=== PATIENT | male | born 1970 | race Caucasian/White ===

== ENCOUNTER 2018-03-01 17:08 | Emergency (ER) | payer SELFPAY ==
[2018-03-01 17:26] VITALS: BP 117/73
--- NOTE | 2018-03-01 18:26 | RADIOLOGY REPORT (SQ) ---
EXAM DESCRIPTION: HAND RIGHT 3 VIEWS COMPLETED DATE/TIME: 03/01/2018 6:14 pm REASON FOR STUDY: right hand swollen and pain COMPARISON: None. NUMBER OF VIEWS: Three views right hand. LIMITATIONS: None. FINDINGS: Fractures through the bases of the 4th and 5th metacarpals, intra-articular. Slight ulnar displacement of the 5th metacarpal with intermetacarpal widening. OTHER: No other significant finding. IMPRESSION: Intra-articular fractures through the 4th and 5th metacarpal bases. Slight displacement of the 5th metacarpal. TECHNICAL DOCUMENTATION: JOB ID: [id number] Reading location - IP/workstation name: [email or web address]
[2018-03-01] MEDS ORDERED: HYDROCODONE/ACETAMINOPHEN 5-325 MG TABLET PO ONE (18:48)
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
== END 2018-03-01 19:20 | disposition home or self-care (01) ==
LOC: ER 17:08
PROC: 2W3CX1Z Immobilization of Right Lower Arm using Splint (ICD-10-PCS; principal; 2018-03-01)
DX: S62.394A Other fracture of fourth metacarpal bone, right hand, initial encounter for closed fracture (principal); S62.396A Other fracture of fifth metacarpal bone, right hand, initial encounter for closed fracture; Y04.2XXA Assault by strike against or bumped into by another person, initial encounter; Z71.6 Tobacco abuse counseling; F17.210 Nicotine dependence, cigarettes, uncomplicated
CPT/HCPCS: 99283; 99406

== ENCOUNTER 2018-03-07 11:07 | Day surgery (SDC) | payer SELFPAY ==
[2018-03-06 11:04] LABS: ABSOLUTE BASOPHILS # (AUTO) 0.1 10^3/uL (0.0-0.2); ABSOLUTE EOSINOPHILS # (AUTO) 0.3 10^3/uL (0.0-0.6); ABSOLUTE LYMPHOCYTES (AUTO) 2.3 10^3/uL (0.5-4.7); ABSOLUTE MONOCYTES (AUTO) 0.8 10^3/uL (0.1-1.4); ABSOLUTE NEUT (AUTO) 4.5 10^3/uL (1.7-8.2); BASOPHILS % (AUTO) 1.2 % (0-2); EOSINOPHILS % (AUTO) 4.3 % (0-6); HEMATOCRIT 46.4 % (37.9-51.0); HEMOGLOBIN 16.2 g/dL (13.5-17.0); LYMPHOCYTES % (AUTO) 28.7 % (13-45); MEAN CORPUSCULAR VOLUME 89 fl (80-97); MONOCYTES % (AUTO) 9.9 % (3-13); PLATELET COUNT 283 10^3/uL (150-450); RED BLOOD COUNT 5.23 10^6/uL (4.35-5.55); RED CELL DISTRIBUTION WIDTH 13.2 % (11.5-14.0); SEGMENTED NEUTROPHILS % (AUTO) 55.9 % (42-78); TOTAL CELLS COUNTED % (AUTO) 100 %; WHITE BLOOD COUNT 8.1 10^3/uL (4.0-10.5)
--- NOTE | 2018-03-06 11:11 | RADIOLOGY REPORT (SQ) ---
EXAM DESCRIPTION: CHEST PA/LATERAL COMPLETED DATE/TIME: 03/06/2018 11:00 am REASON FOR STUDY: PRE-OP COMPARISON: None. EXAM PARAMETERS: NUMBER OF VIEWS: two views TECHNIQUE: Digital Frontal and Lateral radiographic views of the chest acquired. RADIATION DOSE: NA LIMITATIONS: none FINDINGS: LUNGS AND PLEURA: No opacities, masses or pneumothorax. No pleural effusion. MEDIASTINUM AND HILAR STRUCTURES: No masses or contour abnormalities. HEART AND VASCULAR STRUCTURES: Heart normal size. No evidence for failure. BONES: No acute findings. HARDWARE: None in the chest. OTHER: No other significant finding. IMPRESSION: NO SIGNIFICANT RADIOGRAPHIC FINDING IN THE CHEST. TECHNICAL DOCUMENTATION: JOB ID: [id number] [employer]- All Rights Reserved Reading location - IP/workstation name: [email or web address]
[2018-03-06 11:12] LABS: APPEARANCE,URINE CLEAR; BILIRUBIN,URINE NEGATIVE (NEGATIVE); COLOR,URINE YELLOW; GLUCOSE, URINE NEGATIVE (NEGATIVE); KETONES,URINE NEGATIVE (NEGATIVE); LEUKOCYTE ESTERASE,URINE NEGATIVE (NEGATIVE); NITRITE,URINE NEGATIVE (NEGATIVE); PROTEIN,URINE NEGATIVE (NEGATIVE); URINE SPECIFIC GRAVITY 1.016; UROBILINOGEN,URINE NEGATIVE mg/dL (<2.0)
[2018-03-06 11:28] LABS: ANION GAP 8 (5-19); BLOOD UREA NITROGEN 9 mg/dL (7-20); CALCIUM 9.6 mg/dL (8.4-10.2); CARBON DIOXIDE 30 mmol/L (22-30); CHLORIDE 103 mmol/L (98-107); GLUCOSE 96 mg/dL (75-110); POTASSIUM 4.3 mmol/L (3.6-5.0); SODIUM 140.5 mmol/L (137-145)
--- NOTE | 2018-03-06 12:46 | EKG REPORT ---
SEVERITY:- ABNORMAL ECG - SINUS RHYTHM VENTRICULAR TRIGEMINY : Confirmed by: Arias Miramontes MD 06-Mar-2018 12:46:12
[~2018-03-07 11:07] MED LIST: LACTATED RINGERS 1000 ML IV PRN; LIDOCAINE 0.5% INJ-PF (5 MG/ML) 50 ML SDV SUBCUT PRN; SUCCINYLCHOLINE CHLORIDE INJ 200 MG/10 ML VIAL ONE
[2018-03-07] MEDS ORDERED: ALBUTEROL SULFATE 0.083% NEB 2.5 MG/3 ML AMPUL NEB ONE (11:56)
[2018-03-07] MEDS ORDERED: MIDAZOLAM 2 MG/2 ML INJ ONE (12:09)
[2018-03-07] MEDS ORDERED: FENTANYL CITRATE INJ/PF 250 MCG/5 ML AMPULE ONE (12:09)
[2018-03-07] MEDS ORDERED: PROPOFOL INJ 200 MG/20 ML VIAL IV ONE (12:10)
[2018-03-07] MEDS ORDERED: ONDANSETRON HCL INJ/PF 4 MG/2 ML SDV ONE (12:10)
[2018-03-07] MEDS ORDERED: ACETAMINOPHEN 1,000 MG/100 ML RTUPB IV ONE (12:10)
[2018-03-07] MEDS ORDERED: DEXAMETHASONE SOD PHOSPHATE INJ 4 MG/1 ML VIAL ONE (12:10)
[2018-03-07] MEDS ORDERED: FENTANYL CITRATE INJ/PF 100 MCG/2 ML AMPUL ONE (12:12)
[2018-03-07] MEDS ORDERED: CEFAZOLIN SODIUM 2 GM in DEXTROSE 5%-WATER 100 ML IV PRN (13:07)
[2018-03-07] MEDS ORDERED: BUPIVACAINE HCL 0.5 % INJ/PF 30 ML SDV ONE (14:02)
[2018-03-07] MEDS ORDERED: FENTANYL CITRATE INJ/PF 100 MCG/2 ML AMPUL IV PRN ×3 (14:30)
[2018-03-07] MEDS ORDERED: ONDANSETRON HCL INJ/PF 4 MG/2 ML SDV IV PRN ×2 (14:30→15:15)
[2018-03-07] MEDS ORDERED: MORPHINE SULFATE 10 MG/ML INJ IV PRN ×2 (14:30→15:15)
[2018-03-07] MEDS ORDERED: MEPERIDINE HCL/PF INJ 25 MG/1 ML DISP.SYRIN IV PRN (14:30)
[2018-03-07] MEDS ORDERED: PROMETHAZINE HCL INJ 25 MG/1 ML VIAL IV PRN ×2 (14:30)
[2018-03-07] MEDS ORDERED: DIPHENHYDRAMINE HCL 50 MG/ML VIAL IV PRN (14:30)
[2018-03-07] MEDS ORDERED: OXYCODONE HCL IR 5 MG TABLET PO ONE (14:45)
[2018-03-07] MEDS: FENTANYL CITRATE INJ/PF 100 MCG/2 ML AMPUL ONE ×2 (15:02→15:05)
[2018-03-07] MEDS ORDERED: OXYCODONE HCL IR 5 MG TABLET PO PRN (15:16)
--- NOTE | 2018-03-07 15:18 | Discharge Summary ---
Discharge Summary (SDC) - Discharge Final Diagnosis: Fourth/fifth metacarpal fracture right hand Date of Surgery: 03/07/18 Discharge Date: 03/07/18 Condition: Good Treatment or Instructions: Schedule Follow Up w/ Dr. Clemente Austin @ [facility] to be seen in 10-14 days or as scheduled [place]: [place]: [place]: Ice and elevate Keep splint clean/dry/intact. If your fingers become numb please unwrap the Oswald wrap but leave the splint in place, if the sensation does not return within 30 minutes please return to the emergency department. May begin finger range of motion attempting to make full fist. Please use ibuprofen (Motrin or Advil) 600-800 mg every 8 hours as needed for pain or fever DO NOT TAKE w/ TORADOL may use once TORADOL complete. You may also use acetaminophen (Tylenol) 1000 mg every 4-6 hours as needed for pain or fever. Please be aware that many medications contain acetaminophen, do not exceed a total of 1000 mg of acetaminophen every 6 hours. If ibuprofen and acetaminophen are not sufficient for your pain you may take the Percocet/[place]. Please be aware that the Percocet/[place] does contain Tylenol. Stool softener of choice when on pain medication. USE OF MIVA-CDW-TQEZYGH IBUPROFEN: Ibuprofen (Advil, Nuprin, Medipren, Motrin IB) is a medication for fever and pain control. In addition, it has anti- inflammatory effects which may be beneficial, especially in the treatment of injuries. It's best to take ibuprofen with food. Persons with ulcer disease or allergy to aspirin should notify their physician of this before taking ibuprofen. Ibuprofen can be given every four to six hours, for a total of four doses daily. Age Pain or fever dose Antiinflammatory dose 6-8 yr 200 mg (1 tab) 200 mg (1 tab) 9-11 yr 200 mg (1 tab) 200-400 mg (1-2 tab) 11-14 yr 200-400 mg (1-2 tab) 400 mg (2 tab) 15-adult 400 mg (2 tab) 600 mg (3 tab) ORAL NARCOTIC MEDICATION: You have been given a prescription for pain control. This medication is a narcotic. It's best taken with food, as nausea can result if taken on an empty stomach. Don't operate machinery or drive within six hours of taking this medication. Do not combine this medicine with alcohol, or with any medication which can cause sedation (such as cold tablets or sleeping pills) unless you get permission from the physician. Narcotics tend to cause constipation. If possible, drink plenty of fluids and eat a diet high in fiber and fruits. Please be aware that prescription narcotics also have the potential for abuse. People become addicted to these medications because of the general sense of wellbeing that they induce. This feeling along with a significant reduction in tension, anxiety, and aggression provides a stimulating seductive quality to these drugs. Once your pain is under control, we encourage you to discard your unused narcotics. Prescriptions: Oxycodone HCl [Oxy-Ir 5 mg Tablet] 5 mg PO Q6HP PRN #25 tab PRN Reason: Discharge Diet: As Tolerated Respiratory Treatments at Home: Deep Breathing/Coughing Discharge Activity: No Lifting Over 10 Pounds, No Lifting/Push/Pulling Report the Following to Your Physician Immediately: Fever over 101 Degrees, Unusual Bleeding, Redness, Swelling, Warmth, Increased Soreness, Drainage-Foul Smelling
[2018-03-07] MEDS ORDERED: HYDROMORPHONE HCL INJ/PF 2 MG/ML AMPULE ONE (15:21)
--- NOTE | 2018-03-07 15:22 | Operative Report ---
Operative Report DATE OF SURGERY: 03/07/18 PREOPERATIVE DIAGNOSIS: Fourth metacarpal base fracture, intra-articular fifth metacarpal base fracture POSTOPERATIVE DIAGNOSIS: Same OPERATION: Closed reduction percutaneous pinning fourth/fifth metacarpal base fracture SURGEON: MARILEE TOLENTINO ANESTHESIA: GA COMPLICATIONS: None ESTIMATED BLOOD LOSS: Minimal PROCEDURE: Indication for above procedure: 47-year-old male who sustained fractures of his fourth/fifth metacarpal bases. Patient was seen at the emergency room where x-rays confirm this diagnosis and patient was placed in a splint. Upon follow-up at my office we discussed findings on radiographs and treatment options which included operative versus nonoperative intervention. Risks and benefits were explained patient verbalized understanding consented for the surgical procedure. Procedure In Detail: Patient was seen and evaluated in the preoperative holding area. The RIGHT upper extremity was initialized and marked. Patient received 2g of Ancef IV for bacterial prophylaxis. Patient was taken back to the operative room where transferred to the operative table and placed under general anesthesia. Once they were adequately anesthetized a nonsterile tourniquet was placed on the upper extremity. A surgical team debriefing was performed ensuring all instrumentation was available, the surgical procedure was discussed with possible concerns reviewed. The upper extremity was prepped with chlorhexidine and alcohol and draped in a sterile fashion. A timeout was done identifying correct patient, procedure and extremity everyone in attendance agree with this and verbalized no concerns. The extremity was exsanguinated the tourniquet was inflated to 250 mmHg. Traction was performed to the fourth/fifth metacarpals the intra-articular fragment of the fifth metacarpal was rotated approximately 90 degrees. With a 0.062 K wire I was able to joystick the fragment into an acceptable position. A second 0.062 K wire was placed across the fourth/fifth metacarpals maintaining reduction. A 0.045 K wire was then placed obliquely across the fourth metacarpal into the fragment obtaining far fixation of the fourth metacarpal. At completion there was minimal residual diastases. K wire was then cut and bent left outside the skin. The area was then dressed with Xeroform 4 x 4's. 20 cc of 0.5% bupivacaine without epinephrine was injected for postoperative pain control. Sponge counts, instrument counts, needle counts were correct. Patient was then awoken from anesthesia. Transferred from the operating room table to the operating room stretcher. There was no intraoperative complications patient tolerated procedure well stable to PACU. Postoperative plan: Patient follow-up made in the office 2 weeks we will obtain radiographs and transition to short arm cast.
[2018-03-07] MEDS ORDERED: OXYCODONE HCL IR 5 MG TABLET ONE (16:01)
[2018-03-07 17:08] VITALS: BP 134/89
--- NOTE | 2018-03-07 17:09 | RADIOLOGY REPORT (SQ) ---
EXAM DESCRIPTION: NO CHG FLUORO; HAND RIGHT 2 VIEWS COMPLETED DATE/TIME: 03/07/2018 5:01 pm REASON FOR STUDY: CLOSED VS ORIF RIGHT 4TH/5TH METACARPAL S62.316A DISP FX OF BASE OF FIFTH METACAR PAL BONE, RIGHT ROYAL S62.314A DISP FX OF BASE OF FOURTH METACARPAL BONE, RIGHT CHANG COMPARISON: 03/01/2018. FLUOROSCOPY TIME: 45 seconds. 6 images saved to PACS. TECHNIQUE: Intra-operative images acquired during surgical procedure to evaluate progress. NUMBER OF IMAGES: 6 images. LIMITATIONS: None. FINDINGS: Images acquired during hardware placement. IMPRESSION: IMAGE(S) OBTAINED DURING PROCEDURE. COMMENT: Quality ID [id number]: Final reports for procedures using fluoroscopy that document radiation exp osure indices, or exposure time and number of fluorographic images (if radiation exposure indices are not available) Please consult full operative report of the attending physician for description of the procedure. TECHNICAL DOCUMENTATION: JOB ID: [id number] [employer]- All Rights Reserved Reading location - IP/workstation name: [facility]
--- NOTE | 2018-03-07 17:09 | RADIOLOGY REPORT (SQ) ---
EXAM DESCRIPTION: NO CHG FLUORO; HAND RIGHT 2 VIEWS COMPLETED DATE/TIME: 03/07/2018 5:01 pm REASON FOR STUDY: CLOSED VS ORIF RIGHT 4TH/5TH METACARPAL S62.316A DISP FX OF BASE OF FIFTH METACAR PAL BONE, RIGHT ROYAL S62.314A DISP FX OF BASE OF FOURTH METACARPAL BONE, RIGHT CHANG COMPARISON: 03/01/2018. FLUOROSCOPY TIME: 45 seconds. 6 images saved to PACS. TECHNIQUE: Intra-operative images acquired during surgical procedure to evaluate progress. NUMBER OF IMAGES: 6 images. LIMITATIONS: None. FINDINGS: Images acquired during hardware placement. IMPRESSION: IMAGE(S) OBTAINED DURING PROCEDURE. COMMENT: Quality ID [id number]: Final reports for procedures using fluoroscopy that document radiation exp osure indices, or exposure time and number of fluorographic images (if radiation exposure indices are not available) Please consult full operative report of the attending physician for description of the procedure. TECHNICAL DOCUMENTATION: JOB ID: [id number] [employer]- All Rights Reserved Reading location - IP/workstation name: [facility]
== END 2018-03-07 17:00 | disposition home or self-care (01) ==
LOC: OROUT 11:07
PROVIDERS: ATTEND Orthopaedic Surgery
DX: S62.316A Displaced fracture of base of fifth metacarpal bone, right hand, initial encounter for closed fracture (principal); S62.314A Displaced fracture of base of fourth metacarpal bone, right hand, initial encounter for closed fracture; Y09 Assault by unspecified means; M79.641 Pain in right hand; E07.9 Disorder of thyroid, unspecified; F17.210 Nicotine dependence, cigarettes, uncomplicated
CPT/HCPCS: 93005; 36415; 85025; 80048; 81001; 71046; 73120; 93010; 26608 ×2; C1713 ×2; J2250; J3490; J0690; J1100; J3010; J1170; J0330; J2405; J2704; J0131; 01820

== ENCOUNTER 2018-05-30 09:00 | Emergency (ER) | payer SELFPAY ==
[2018-05-30 09:06] VITALS: BP 127/86
[2018-05-30] MEDS ORDERED: ONDANSETRON HCL INJ/PF 4 MG/2 ML SDV IV ONE (09:24)
[2018-05-30] MEDS ORDERED: NORMAL SALINE 1000 ML 1,000 ML IV ONE (09:24)
--- NOTE | 2018-05-30 09:26 | ER Document Report ---
ED Medical Screen (RME) - General Chief Complaint: Nausea/Vomiting/Diarrhea Stated Complaint: STOMACH PAIN Time Seen by Provider: 05/30/18 09:18 Mode of Arrival: Ambulatory Information source: Patient Notes: Patient presents the emergency department with 2-3-day history of nausea, vomiting and diarrhea. Patient also reports upper respiratory symptoms such as cough and congestion that is been going on for several weeks. Patient states he cannot even keep down water. Patient denies any baseline abdominal pain, states he has severe abdominal cramping when he is about to vomit or have diarrhea. Reports past medical history of hepatitis C. Exam: Abdomen soft, nontender. I have greeted and performed a rapid initial assessment of this patient. A comprehensive ED assessment and evaluation of the patient, analysis of test results and completion of the medical decision making process will be conducted by additional ED providers. Dictation of this chart was performed using voice recognition software; therefore, there may be some unintended grammatical errors. TRAVEL OUTSIDE OF THE [place] IN LAST 30 DAYS: No - Related Data Allergies/Adverse Reactions: No Known Allergies Allergy (Verified 03/05/18 09:48) Past Medical History - Past Medical History Cardiac Medical History: Denies: Hx Coronary Artery Disease, Hx Heart Attack, Hx Hypertension Pulmonary Medical History: Reports: Hx Bronchitis Denies: Hx Asthma, Hx COPD, Hx Pneumonia Neurological Medical History: Denies: Hx Cerebrovascular Accident, Hx Seizures Renal/ Medical History: Denies: Hx Peritoneal Dialysis GI Medical History: Reports: Hx Hepatitis - C Musculoskeltal Medical History: Denies Hx Arthritis, Reports Hx Musculoskeletal Trauma - Fractured jaw and today a fourth and fifth metacarpal fracture Psychiatric Medical History: Reports: Hx Anxiety, Hx Bipolar Disorder, Hx Depression Traumatic Medical History: Reports: Hx Fractures - Fractured jaw and today a fourth and fifth metacarpal fracture Infectious Medical History: Reports: Hx Hepatitis - C Past Surgical History: Reports: Hx Appendectomy, Hx Oral Surgery - Jaw surgery for fracture, Hx Orthopedic Surgery - bilat shoulder - Immunizations Immunizations up to date: Yes Hx Diphtheria, Pertussis, Tetanus Vaccination: Yes History of Influenza Vaccine for 11/2016 - 04/2017 Season: No Physical Exam - Vital signs Vitals: Temp Pulse Resp BP Pulse Ox 98.5 F 85 14 127/86 H 98 05/30/18 09:05 05/30/18 09:05 05/30/18 09:05 05/30/18 09:05 05/30/18 09:05 Course - Vital Signs Vital signs: Temp Pulse Resp BP Pulse Ox 98.5 F 85 14 127/86 H 98 05/30/18 09:05 05/30/18 09:05 05/30/18 09:05 05/30/18 09:05 05/30/18 09:05
[2018-05-30 09:46] LABS: ABSOLUTE EOSINOPHILS # (AUTO) 0.2 10^3/uL (0.0-0.6); ABSOLUTE LYMPHOCYTES (AUTO) 1.6 10^3/uL (0.5-4.7); ABSOLUTE MONOCYTES (AUTO) 0.6 10^3/uL (0.1-1.4); ABSOLUTE NEUT (AUTO) 3.6 10^3/uL (1.7-8.2); BASOPHILS % (AUTO) 0.8 % (0-2); EOSINOPHILS % (AUTO) 3.1 % (0-6); HEMATOCRIT 47.5 % (37.9-51.0); HEMOGLOBIN 16.6 g/dL (13.5-17.0); MEAN CORPUSCULAR HEMOGLOBIN 30.7 pg (27.0-33.4); MEAN CORPUSCULAR HGB CONC 34.9 g/dL (32.0-36.0); MEAN CORPUSCULAR VOLUME 88 fl (80-97); MONOCYTES % (AUTO) 9.6 % (3-13); PLATELET COUNT 274 10^3/uL (150-450); RED BLOOD COUNT 5.39 10^6/uL (4.35-5.55); RED CELL DISTRIBUTION WIDTH 13.6 % (11.5-14.0); SEGMENTED NEUTROPHILS % (AUTO) 60.5 % (42-78); TOTAL CELLS COUNTED % (AUTO) 100 %
[2018-05-30 09:50] LABS: APPEARANCE,URINE CLEAR; BILIRUBIN,URINE NEGATIVE (NEGATIVE); COLOR,URINE YELLOW; GLUCOSE, URINE 150 mg/dL (NEGATIVE); KETONES,URINE NEGATIVE (NEGATIVE); LEUKOCYTE ESTERASE,URINE NEGATIVE (NEGATIVE); NITRITE,URINE NEGATIVE (NEGATIVE); PROTEIN,URINE NEGATIVE (NEGATIVE); URINE SPECIFIC GRAVITY 1.009; UROBILINOGEN,URINE NEGATIVE mg/dL (<2.0)
[2018-05-30 10:00] LABS: BLOOD UREA NITROGEN 9 mg/dL (7-20); CALCIUM 10.5 mg/dL (8.4-10.2); GLUCOSE 85 mg/dL (75-110)
[2018-05-30 10:01] LABS: ALANINE AMINOTRANSFERASE 25 U/L (21-72); ALBUMIN 4.7 g/dL (3.5-5.0); ALKALINE PHOSPHATASE 78 U/L (38-126); ANION GAP 10 (5-19); ASPARTATE AMINO TRANSFERASE 27 U/L (17-59); BILIRUBIN,DIRECT 0.3 mg/dL (0.0-0.4); BILIRUBIN,TOTAL 0.6 mg/dL (0.2-1.3); CARBON DIOXIDE 29 mmol/L (22-30); CHLORIDE 101 mmol/L (98-107); LIPASE 34.1 U/L (23-300); POTASSIUM 4.9 mmol/L (3.6-5.0); SODIUM 140.4 mmol/L (137-145); TOTAL PROTEIN 8.3 g/dL (6.3-8.2)
--- NOTE | 2018-05-30 10:27 | ER Document Report ---
ED General - General Chief Complaint: Nausea/Vomiting/Diarrhea Stated Complaint: STOMACH PAIN Time Seen by Provider: 05/30/18 09:18 Mode of Arrival: Ambulatory Notes: Patient is a 47-year-old male that presents to the emergency department for chief complaint of nausea, vomiting diarrhea. Patient reports having symptoms for the past 3-4 days, he has had 1-2 episodes of vomiting each day, and a few episodes of nonbloody diarrhea. He has not had any hematemesis. He denies any sick contacts he is aware of, or consumption of undercooked foods such as raw beef, or sushi. He also denies having any fevers, chills, night sweats, chest pain, shortness of breath or difficulty breathing. Past Medical History: Hepatitis C Past Surgical History: Hand surgery, shoulder surgery, appendectomy Social History: Admits to smoking cigarettes, no current alcohol or illicit drug use. Family History: Reviewed and noncontributory for presenting illness Allergies: Reviewed, see documented allergy list. REVIEW OF SYSTEMS: Other than noted above, the 12 point review of systems was reviewed with the patient and were negative, all pertinent findings are included in the HPI. PHYSICAL EXAMINATION: Vital signs reviewed, nursing noted reviewed. GENERAL: Well-appearing, well-nourished and in no acute distress. HEAD: Atraumatic, normocephalic. EYES: Eyes appear normal, extraocular movements intact, sclera anicteric, con junctiva are normal. ENT: nares patent, oropharynx clear without exudates. Moist mucous membranes. NECK: Normal range of motion, supple without lymphadenopathy LUNGS: Breath sounds clear to auscultation bilaterally and equal. No wheezes rales or rhonchi. HEART: Regular rate and rhythm without murmurs ABDOMEN: Soft, nontender, normoactive bowel sounds. No rebound, guarding, or rigidity. No masses appreciated. EXTREMITIES: Nontender, good range of motion, no pitting or edema. NEUROLOGICAL: No focal neurological deficits. Moves all extremities spontaneously Motor and sensory grossly intact on exam. PSYCH: Normal mood, normal affect. SKIN: Warm, Dry, normal turgor, no rashes or lesions noted on exposed skin TRAVEL OUTSIDE OF THE [place] IN LAST 30 DAYS: No - Related Data Allergies/Adverse Reactions: No Known Allergies Allergy (Verified 03/05/18 09:48) Past Medical History - General Information source: Patient - Social History Smoking Status: Current Every Day Smoker Family History: Reviewed & Not Pertinent Patient has suicidal ideation: No Patient has homicidal ideation: No - Past Medical History Cardiac Medical History: Denies: Hx Coronary Artery Disease, Hx Heart Attack, Hx Hypertension Pulmonary Medical History: Reports: Hx Bronchitis Denies: Hx Asthma, Hx COPD, Hx Pneumonia Neurological Medical History: Denies: Hx Cerebrovascular Accident, Hx Seizures Renal/ Medical History: Denies: Hx Peritoneal Dialysis GI Medical History: Reports: Hx Hepatitis - C Musculoskeletal Medical History: Denies Hx Arthritis, Reports Hx Musculoskeletal Trauma - Fractured jaw and today a fourth and fifth metacarpal fracture Psychiatric Medical History: Reports: Hx Anxiety, Hx Bipolar Disorder, Hx Depression Traumatic Medical History: Reports: Hx Fractures - Fractured jaw and today a fourth and fifth metacarpal fracture Infectious Medical History: Reports: Hx Hepatitis - C Past Surgical History: Reports: Hx Appendectomy, Hx Oral Surgery - Jaw surgery for fracture, Hx Orthopedic Surgery - bilat shoulder - Immunizations Immunizations up to date: Yes Hx Diphtheria, Pertussis, Tetanus Vaccination: Yes Physical Exam - Vital signs Vitals: Temp Pulse Resp BP Pulse Ox 98.5 F 85 14 127/86 H 98 05/30/18 09:05 05/30/18 09:05 05/30/18 09:05 05/30/18 09:05 05/30/18 09:05 Course - Re-evaluation Re-evalutation: Patient seen and examined vital signs reviewed. Laboratory data and imaging were ordered as appropriate for the patient's prese nting symptoms and complaint, with consideration of any critical or life threatening conditions that may be associated with their obtained history and exam as noted above. Patient was treated with IV fluids and IV Zofran Results were reviewed when available and demonstrated unremarkable blood work The patient was re-evaluated and was stable and improved Evaluation was most consistent with nausea, vomiting diarrhea, nonspecific, will discharge home with prescription for Zofran Results were discussed with the patient at this point, after careful consideration I feel that that patient can be discharged from the emergency department, the patient was educated treatments and reasons to return to the emergency department based on their presumed diagnosis as noted above, they were advised to followup with a primary care physician in 2-3 days. Patient was agreeable to plan of care. *Note is created using voice recognition software and may contain spelling, syntax or grammatical errors. Laboratory 05/30/18 05/30/18 05/30/18 09:28 09:33 09:33 WBC 6.0 RBC 5.39 Hgb 16.6 Hct 47.5 MCV 88 MCH 30.7 MCHC 34.9 RDW 13.6 Plt Count 274 Seg Neutrophils % 60.5 Lymphocytes % 26.0 Monocytes % 9.6 Eosinophils % 3.1 Basophils % 0.8 Absolute Neutrophils 3.6 Absolute Lymphocytes 1.6 Absolute Monocytes 0.6 Absolute Eosinophils 0.2 Absolute Basophils 0.0 Sodium 140.4 Potassium 4.9 Chloride 101 Carbon Dioxide 29 Anion Gap 10 BUN 9 Creatinine 0.73 Est GFR ( Amer) > 60 Est GFR (Non-Af Amer) > 60 Glucose 85 Calcium 10.5 H Total Bilirubin 0.6 Direct Bilirubin 0.3 Neonat Total Bilirubin Not Reportable Neonat Direct Bilirubin Not Reportable Neonat Indirect Bili Not Reportable AST 27 ALT 25 Alkaline Phosphatase 78 Total Protein 8.3 H Albumin 4.7 Lipase 34.1 Urine Color YELLOW Urine Appearance CLEAR Urine pH 7.0 Ur Specific [place] 1.009 Urine Protein NEGATIVE Urine Glucose (UA) 150 H Urine Ketones NEGATIVE Urine Blood NEGATIVE Urine Nitrite NEGATIVE Urine Bilirubin NEGATIVE Urine Urobilinogen NEGATIVE Ur Leukocyte Esterase NEGATIVE Urine WBC (Auto) 2 Urine RBC (Auto) 0 Urine Mucus (Auto) RARE Urine Ascorbic Acid NEGATIVE - Vital Signs Vital signs: Temp Pulse Resp BP Pulse Ox 98.5 F 85 14 127/86 H 98 05/30/18 09:05 05/30/18 09:05 05/30/18 09:05 05/30/18 09:05 05/30/18 09:05 - Laboratory Result Diagrams: 05/30/18 09:33 05/30/18 09:33 Laboratory results interpreted by me: 05/30/18 05/30/18 09:28 09:33 Calcium 10.5 H Total Protein 8.3 H Urine Glucose (UA) 150 H Discharge - Discharge Clinical Impression: Nausea and vomiting Qualifiers: Vomiting type: unspecified Vomiting Intractability: non-intractable Qualified Code(s): R11.2 - Nausea with vomiting, unspecified Diarrhea Qualifiers: Diarrhea type: unspecified type Qualified Code(s): R19.7 - Diarrhea, unspecified Condition: Stable Disposition: HOME, SELF-CARE Instructions: Vomiting ([facility]), Diarrhea, Nonspecific ([facility]) Additional Instructions: Please take the medication as prescribed to help with your nausea and vomiting, and maintain your hydration over the next few days, if you have worsening pain or symptoms are not improving, do not hesitate to return to the emergency department. Prescriptions: Ondansetron [Zofran Odt 4 mg Tablet] 1 tab PO Q8H PRN #15 tab.rapdis PRN Reason: For Nausea/Vomiting Referrals: KRISTOPHER BETH MD [ACTIVE STAFF] - Follow up in 3-5 days (or your primary care. )
== END 2018-05-30 11:11 | disposition home or self-care (01) ==
LOC: ER 09:00
DX: R11.2 Nausea with vomiting, unspecified (principal); R19.7 Diarrhea, unspecified; F17.210 Nicotine dependence, cigarettes, uncomplicated
CPT/HCPCS: 99284; 96361; 96374; 36415; 83690; 85025; 80053; 81001; J2405; J7030

== ENCOUNTER 2018-09-08 09:39 | Emergency (ER) | payer SELFPAY ==
[2018-09-08] MEDS ORDERED: ONDANSETRON 4 MG TAB.RAPDIS PO ONE ×2 (10:18→11:51)
--- NOTE | 2018-09-08 10:21 | ER Document Report ---
ED General - General Chief Complaint: Nausea/Vomiting Stated Complaint: NAUSEA,VOMITING,DIARRHEA Time Seen by Provider: 09/08/18 10:13 Mode of Arrival: Ambulatory Information source: Patient Notes: Presents to the emergency department with complaints of left lower quad abdominal pain nausea and vomiting diarrhea since 4:00 this morning. Denies fever. Reports history of IBS. Reports he was fine up until this morning. Reports he vomited and had diarrhea prior to arrival. TRAVEL OUTSIDE OF THE [place] IN LAST 30 DAYS: No - HPI Onset: This morning Onset/Duration: Sudden Quality of pain: Cramping Pain Level: 3 Associated symptoms: Diarrhea, Nausea, Vomiting Exacerbated by: Denies Relieved by: Denies Similar symptoms previously: Yes Recently seen / treated by doctor: No - Related Data Allergies/Adverse Reactions: No Known Allergies Allergy (Verified 09/08/18 09:40) Past Medical History - General Information source: Patient - Social History Smoking Status: Current Every Day Smoker Cigarette use (# per day): Yes Frequency of alcohol use: None Drug Abuse: None Family History: Reviewed & Not Pertinent Patient has suicidal ideation: No Patient has homicidal ideation: No - Past Medical History Cardiac Medical History: Denies: Hx Coronary Artery Disease, Hx Heart Attack, Hx Hypertension Pulmonary Medical History: Reports: Hx Bronchitis Denies: Hx Asthma, Hx COPD, Hx Pneumonia Neurological Medical History: Denies: Hx Cerebrovascular Accident, Hx Seizures Renal/ Medical History: Denies: Hx Peritoneal Dialysis GI Medical History: Reports: Hx Gastroesophageal Reflux Disease - IBS, Hx Hepatitis - C, Hx Irritable Bowel Musculoskeletal Medical History: Denies Hx Arthritis, Reports Hx Musculoskeletal Trauma - Fractured jaw and today a fourth and fifth metacarpal fracture Psychiatric Medical History: Reports: Hx Anxiety, Hx Bipolar Disorder, Hx Depression Traumatic Medical History: Reports: Hx Fractures - Fractured jaw and today a fourth and fifth metacarpal fracture Infectious Medical History: Reports: Hx Hepatitis - C Past Surgical History: Reports: Hx Appendectomy, Hx Oral Surgery - Jaw surgery for fracture, Hx Orthopedic Surgery - bilat shoulder - Immunizations Immunizations up to date: Yes Hx Diphtheria, Pertussis, Tetanus Vaccination: Yes Review of Systems - Review of Systems Notes: Review HPI for review of systems., All other systems negative Physical Exam - Vital signs Vitals: Temp Pulse Resp BP Pulse Ox 98.3 F 88 20 108/61 96 09/08/18 09:48 09/08/18 09:48 09/08/18 09:48 09/08/18 09:48 09/08/18 09:48 - Notes Notes: PHYSICAL EXAMINATION: GENERAL: Well-appearing and in no acute distress HEAD: Atraumatic, normocephalic. EYES: Pupils equal round and reactive to light, extraocular movements intact, sclera anicteric, conjunctiva are normal. ENT: nares patent, oropharynx clear without exudates. Moist mucous membranes. NECK: Normal range of motion, supple without lymphadenopathy LUNGS: CTAB and equal. No wheezes rales or rhonchi. HEART: Regular rate and rhythm without murmurs ABDOMEN: Soft, no tenderness. No guarding, no rebound EXTREMITIES: Normal range of motion, no pitting edema. No cyanosis. NEUROLOGICAL: Cranial nerves grossly intact. Normal sensory/motor exams. PSYCH: Normal mood, normal affect. SKIN: Warm, Dry, normal turgor, no rashes or lesions noted Course - Re-evaluation Re-evalutation: 09/08/18 11:48 This 47-year-old male presents the emergency department with complaints of nausea vomiting diarrhea since 4:00 this morning. He reports left lower quad abdominal pain. Patient is asking for work note right away. He is also asking for note because he was supposed to be [address] this morning. Denies fever. Is drinking water as we talked. 09/08/18 10:37 09/08/18 10:37 MCV 91 fl (80-97) 09/08/18 10:37 MCH 31.3 pg (27.0-33.4) 09/08/18 10:37 MCHC 34.4 g/dL (32.0-36.0) 09/08/18 10:37 RDW 14.5 % (11.5-14.0) H 09/08/18 10:37 Seg Neutrophils % 61.4 % (42-78) 09/08/18 10:37 Lymphocytes % 24.7 % (13-45) 09/08/18 10:37 Monocytes % 9.2 % (3-13) 09/08/18 10:37 Eosinophils % 3.8 % (0-6) 09/08/18 10:37 Basophils % 0.9 % (0-2) 09/08/18 10:37 Absolute Neutrophils 5.1 10^3/uL (1.7-8.2) 09/08/18 10:37 Absolute Lymphocytes 2.0 10^3/uL (0.5-4.7) 09/08/18 10:37 Absolute Monocytes 0.8 10^3/uL (0.1-1.4) 09/08/18 10:37 Absolute Eosinophils 0.3 10^3/uL (0.0-0.6) 09/08/18 10:37 Absolute Basophils 0.1 10^3/uL (0.0-0.2) 09/08/18 10:37 Chloride 102 mmol/L (98-107) 09/08/18 10:37 Carbon Dioxide 30 mmol/L (22-30) 09/08/18 10:37 Anion Gap 7 (5-19) 09/08/18 10:37 Est GFR ( Amer) > 60 (>60) 09/08/18 10:37 Est GFR (Non-Af Amer) > 60 (>60) 09/08/18 10:37 Glucose 117 mg/dL (75-110) H 09/08/18 10:37 Calcium 8.7 mg/dL (8.4-10.2) 09/08/18 10:37 Total Bilirubin 0.3 mg/dL (0.2-1.3) 09/08/18 10:37 AST 30 U/L (17-59) 09/08/18 10:37 ALT 22 U/L (21-72) 09/08/18 10:37 Alkaline Phosphatase 62 U/L (38-126) 09/08/18 10:37 Total Protein 7.2 g/dL (6.3-8.2) 09/08/18 10:37 Albumin 4.1 g/dL (3.5-5.0) 09/08/18 10:37 Urine Color STRAW 09/08/18 10:37 Urine Appearance CLEAR 09/08/18 10:37 Urine pH 7.0 (5.0-9.0) 09/08/18 10:37 Ur Specific [place] 1.004 09/08/18 10:37 Urine Protein NEGATIVE mg/dL (NEGATIVE) 09/08/18 10:37 Urine Glucose (UA) NEGATIVE mg/dL (NEGATIVE) 09/08/18 10:37 Urine Ketones NEGATIVE mg/dL (NEGATIVE) 09/08/18 10:37 Urine Blood NEGATIVE (NEGATIVE) 09/08/18 10:37 Urine Nitrite NEGATIVE (NEGATIVE) 09/08/18 10:37 Ur Leukocyte Esterase NEGATIVE (NEGATIVE) 09/08/18 10:37 Urine WBC (Auto) 0 /HPF 09/08/18 10:37 Urine RBC (Auto) 0 /HPF 09/08/18 10:37 Abdomen/Pelvis CT 09/08/18 10:18 IMPRESSION: NO SIGNIFICANT OR ACUTE FINDING IN THE ABDOMEN OR PELVIS ON CT SCAN WITH IV CONTRAST. 09/08/18 11:53 Labs and urine unremarkable. CT is negative for acute finding. Patient updated on all labs and CT results. Reports he vomited once since arrival. Zofran ordered. Patient prescribed Zofran. Patient was instructed on clear liquid diet advance as tolerated. He was instructed to follow-up with the primary care provider for recheck within 1 week or return to the emergency department for continued symptoms. He verbalized understanding to all instructions. Dictation of this chart was performed using voice recognition software; therefore, there may be some unintended grammatical errors. Thank you - Vital Signs Vital signs: Temp Pulse Resp BP Pulse Ox 97.8 F 64 20 112/68 98 09/08/18 11:51 09/08/18 11:51 09/08/18 11:51 09/08/18 11:51 09/08/18 11:51 - Laboratory Result Diagrams: 09/08/18 10:37 09/08/18 10:37 Laboratory results interpreted by me: 09/08/18 09/08/18 10:37 10:37 RDW 14.5 H Glucose 117 H - Diagnostic Test Radiology reviewed: Image reviewed, Reports reviewed Discharge - Discharge Clinical Impression: Nausea vomiting and diarrhea Abdominal pain Qualifiers: Abdominal location: left lower quadrant Qualified Code(s): R10.32 - Left lower quadrant pain Condition: Stable Disposition: HOME, SELF-CARE Instructions: Abdominal Pain ([facility]), Antinausea Medication ([facility]), Diarrhea, Nonspecific ([facility]), OTC Antidiarrhea Medication ([facility]), Vomiting ([facility]) Additional Instructions: *You have been evaluated for abdominal pain, nausea/vomiting *Take medication as prescribed *Over the counter anti-diarrheal as indicated *Ensure adequate fluid intake as discussed to prevent dehydration *Follow up with a primary care provider within one week *Return to ED for worsening condition, changes, needs Prescriptions: Ondansetron [Zofran Odt 4 mg Tablet] 1 - 2 tab PO Q4HP PRN #10 tab.rapdis PRN Reason: Forms: Special Work Note, Return to Work
[2018-09-08 10:46] LABS: ABSOLUTE BASOPHILS # (AUTO) 0.1 10^3/uL (0.0-0.2); ABSOLUTE EOSINOPHILS # (AUTO) 0.3 10^3/uL (0.0-0.6); ABSOLUTE MONOCYTES (AUTO) 0.8 10^3/uL (0.1-1.4); ABSOLUTE NEUT (AUTO) 5.1 10^3/uL (1.7-8.2); BASOPHILS % (AUTO) 0.9 % (0-2); EOSINOPHILS % (AUTO) 3.8 % (0-6); HEMATOCRIT 42.2 % (37.9-51.0); HEMOGLOBIN 14.5 g/dL (13.5-17.0); LYMPHOCYTES % (AUTO) 24.7 % (13-45); MEAN CORPUSCULAR HEMOGLOBIN 31.3 pg (27.0-33.4); MEAN CORPUSCULAR HGB CONC 34.4 g/dL (32.0-36.0); MEAN CORPUSCULAR VOLUME 91 fl (80-97); MONOCYTES % (AUTO) 9.2 % (3-13); PLATELET COUNT 227 10^3/uL (150-450); RED BLOOD COUNT 4.63 10^6/uL (4.35-5.55); RED CELL DISTRIBUTION WIDTH 14.5 % (11.5-14.0); SEGMENTED NEUTROPHILS % (AUTO) 61.4 % (42-78); TOTAL CELLS COUNTED % (AUTO) 100 %; WHITE BLOOD COUNT 8.3 10^3/uL (4.0-10.5)
[2018-09-08 11:08] LABS: ALANINE AMINOTRANSFERASE 22 U/L (21-72); ALBUMIN 4.1 g/dL (3.5-5.0); ALKALINE PHOSPHATASE 62 U/L (38-126); ANION GAP 7 (5-19); ASPARTATE AMINO TRANSFERASE 30 U/L (17-59); BILIRUBIN,DIRECT 0.3 mg/dL (0.0-0.4); BILIRUBIN,TOTAL 0.3 mg/dL (0.2-1.3); BLOOD UREA NITROGEN 12 mg/dL (7-20); CALCIUM 8.7 mg/dL (8.4-10.2); CARBON DIOXIDE 30 mmol/L (22-30); CHLORIDE 102 mmol/L (98-107); GLUCOSE 117 mg/dL (75-110); POTASSIUM 4.2 mmol/L (3.6-5.0); SODIUM 138.9 mmol/L (137-145); TOTAL PROTEIN 7.2 g/dL (6.3-8.2)
[2018-09-08 11:32] LABS: APPEARANCE,URINE CLEAR; BILIRUBIN,URINE NEGATIVE (NEGATIVE); COLOR,URINE STRAW; GLUCOSE, URINE NEGATIVE (NEGATIVE); KETONES,URINE NEGATIVE (NEGATIVE); LEUKOCYTE ESTERASE,URINE NEGATIVE (NEGATIVE); NITRITE,URINE NEGATIVE (NEGATIVE); PROTEIN,URINE NEGATIVE (NEGATIVE); URINE SPECIFIC GRAVITY 1.004; UROBILINOGEN,URINE NEGATIVE mg/dL (<2.0)
--- NOTE | 2018-09-08 11:38 | RADIOLOGY REPORT (SQ) ---
EXAM DESCRIPTION: CT ABD/PELVIS WITH IV ONLY COMPLETED DATE/TIME: 09/08/2018 11:04 am REASON FOR STUDY: LLQ abd pain n/v COMPARISON: None. TECHNIQUE: CT scan of the abdomen and pelvis performed using helical scanning technique with dynamic intravenous contrast injection. No oral contrast. Images reviewed with lung, soft tissue, and bone windows. Reconstructed coronal and sagittal MPR images reviewed. Delayed images for evaluation of the urinary system also acquired. All images stored on PACS. All CT scanners at this facility use dose modulation, iterative reconstruction, and/or weight based d osing when appropriate to reduce radiation dose to as low as reasonably achievable (ALARA). [facility]: Dose Right [facility]: CareDose [facility]: Dose Right [facility]: Teradose 4D [facility]: [employer] [facility] CONTRAST TYPE AND DOSE: contrast/concentration: Isovue 350.00 mg/ml; Total Contrast Delivered: 83.0 ml; Total Saline Delivered: 69.0 ml RENAL FUNCTION: None required. The patient is less than 50 years old. RADIATION DOSE: CT Rad equipment meets quality standard of care and radiation dose reduction techniq ues were employed. CTDIvol: 6.0 - 8.2 mGy. DLP: 717 mGy-cm.. LIMITATIONS: None. FINDINGS: LOWER CHEST: No significant findings. No nodules or infiltrates. LIVER: Normal size. No masses. No dilated ducts. SPLEEN: Normal size. No focal lesions. PANCREAS: No masses. No significant calcifications. No adjacent inflammation or peripancreatic fluid collections. Pancreatic duct not dilated. GALLBLADDER: No identified stones by CT criteria. No inflammatory changes to suggest cholecystitis. ADRENAL GLANDS: No significant masses or asymmetry. RIGHT KIDNEY AND URETER: No solid masses. No significant calcifications. No hydronephrosis or hyd roureter. LEFT KIDNEY AND URETER: No solid masses. No significant calcifications. No hydronephrosis or hydr oureter. AORTA AND VESSELS: No aneurysm. No dissection. Renal arteries, SMA, celiac without stenosis. RETROPERITONEUM: No retroperitoneal adenopathy, hemorrhage or masses. BOWEL AND PERITONEAL CAVITY: No masses or inflammatory changes. No free fluid or peritoneal masses. APPENDIX: Surgically absent. PELVIS: No mass. No free fluid. Normal bladder. ABDOMINAL WALL: No masses. No hernias. BONES: No significant or acute findings. OTHER: No other significant finding. IMPRESSION: NO SIGNIFICANT OR ACUTE FINDING IN THE ABDOMEN OR PELVIS ON CT SCAN WITH IV CONTRAST. TECHNICAL DOCUMENTATION: JOB ID: [id number] Quality ID # [id number]: Final reports with documentation of one or more dose reduction techniques (e.g., Au tomated exposure control, adjustment of the mA and/or kV according to patient size, use of iterative reconstruction technique) 2010 [email or web address]- All Rights Reserved Reading location - IP/workstation name: [email or web address]
[2018-09-08 11:52] VITALS: BP 112/68
== END 2018-09-08 11:58 | disposition home or self-care (01) ==
LOC: ER 09:39
DX: R11.2 Nausea with vomiting, unspecified (principal); R19.7 Diarrhea, unspecified; R10.32 Left lower quadrant pain; F17.210 Nicotine dependence, cigarettes, uncomplicated; Z86.19 Personal history of other infectious and parasitic diseases
CPT/HCPCS: 99284; 36415; 85025; 80053; 81001; 74177; S0119

== ENCOUNTER 2018-10-13 17:40 | Emergency (ER) | payer SELFPAY ==
[2018-10-13 18:17] VITALS: BP 116/75
== END 2018-10-13 19:35 | disposition left against medical advice (07) ==
LOC: ER 17:40
DX: Z53.21 Procedure and treatment not carried out due to patient leaving prior to being seen by health care provider (principal)

== ENCOUNTER 2020-01-21 19:08 | Emergency (ER) | payer SELFPAY ==
[2020-01-21 19:13] VITALS: BP 115/72
[2020-01-21] MEDS ORDERED: IPRATROPIUM/ALBUTEROL 0.5-2.5 MG/3 ML AMPUL NEB ONE (19:37)
[2020-01-21] MEDS ORDERED: METHYLPREDNISOLONE INJ 125 MG/2 ML SDV IV ONE (19:37)
--- NOTE | 2020-01-21 19:43 | ER Document Report ---
ED Medical Screen (RME) - General Chief Complaint: Productive Cough Stated Complaint: CONGESTION Time Seen by Provider: 01/21/20 19:26 Mode of Arrival: Ambulatory Information source: Patient Notes: Patient is a 49-year-old male comes emergency room complaining of cough congestion for the past week and a half. Patient states that he has been very congested in his chest with a productive yellowish-green cough. Patient admits to smoking at least a pack of cigarettes a day. He denies any other medical problems he is only currently on some psych medications. His nose is also been congestion. Patient denies any known Covid contacts. He denies having any fevers. He has had no nausea vomiting diarrhea or chest pain. Physical examination shows him to be a well-nourished well-developed 49-year-old male no apparent distress but appears somewhat uncomfortable. Cardiac: Patient shows a regular rate on monitor with no murmurs auscultated. His heart rate is 72 beats a minute. Blood pressure is 115/72. Lungs: Patient displays bilateral breath sounds with breath sounds decreased throughout he has very coarse rhonchi scattered in all lung amado with inspiratory and expiratory wheeze noted. Patient satting 96% on room air currently. Abdomen: Bowel sounds present 4 quads nontender to palpate. HEENT: Examination head and upper airway show nasal mucosa be very erythematous and edematous with congestion bilateral nares. Posterior pharynx shows some mild drainage no exudate is noted airways patent. This appears to be a COPD exacerbation although patient does not have a history of COPD but he does smoke a pack of cigarettes a day. He is also concerned about the coronavirus and also wishes to be tested for that because his parents think that he has it. We will do a work-up and we will run some IV fluids along with some magnesium and some steroids. TRAVEL OUTSIDE OF THE [place] IN LAST 30 DAYS: No - Related Data Allergies/Adverse Reactions: No Known Allergies Allergy (Verified 09/08/18 09:40) Home Medications: suboxone, trazadone, vistaril, buspar, Past Medical History - Past Medical History Cardiac Medical History: Denies: Hx Coronary Artery Disease, Hx Heart Attack, Hx Hypertension Pulmonary Medical History: Reports: Hx Bronchitis Denies: Hx Asthma, Hx COPD, Hx Pneumonia Neurological Medical History: Denies: Hx Cerebrovascular Accident, Hx Seizures Renal/ Medical History: Denies: Hx Peritoneal Dialysis GI Medical History: Reports: Hx Gastroesophageal Reflux Disease - IBS, Hx Hepatitis - C, Hx Irritable Bowel Musculoskeltal Medical History: Denies Hx Arthritis, Reports Hx Musculoskeletal Trauma - Fractured jaw and today a fourth and fifth metacarpal fracture Psychiatric Medical History: Reports: Hx Anxiety, Hx Bipolar Disorder, Hx Depression Traumatic Medical History: Reports: Hx Fractures - Fractured jaw and today a fourth and fifth metacarpal fracture Infectious Medical History: Reports: Hx Hepatitis - C Past Surgical History: Reports: Hx Appendectomy, Hx Oral Surgery - Jaw surgery for fracture, Hx Orthopedic Surgery - bilat shoulder - Immunizations Immunizations up to date: Yes Hx Diphtheria, Pertussis, Tetanus Vaccination: Yes Physical Exam - Vital signs Vitals: Temp Pulse Resp BP Pulse Ox 98.3 F 72 18 115/72 96 01/21/20 19:13 01/21/20 19:13 01/21/20 19:13 01/21/20 19:13 01/21/20 19:13 Course - Vital Signs Vital signs: Temp Pulse Resp BP Pulse Ox 98.3 F 72 18 115/72 96 01/21/20 19:13 01/21/20 19:13 01/21/20 19:13 01/21/20 19:13 01/21/20 19:13
--- NOTE | 2020-01-21 20:34 | RADIOLOGY REPORT (SQ) ---
EXAM DESCRIPTION: XR CHEST 1 VIEW COMPLETED DATE/TME: 01/21/2020 20:08 CLINICAL HISTORY: 49 years, Male, wheezing COMPARISON: March 06, 2018 NUMBER OF VIEWS: 1 TECHNIQUE: AP portable upright view of the chest was obtained at 7:55 PM. LIMITATIONS: Lungs are relatively overexposed. FINDINGS: Heart size is within normal limits. Lungs appear clear as visualized. There is no evidence of pleural effusion or pneumothorax. IMPRESSION: No acute abnormality as above. copyright 2010 [employer]- All Rights Reserved
[2020-01-21] MEDS: MAGNESIUM SULFATE/D5W 1 GM/100 ML RTUPB IV SCH ×2 (21:03→21:19)
[2020-01-21 21:23] LABS: ABSOLUTE BASOPHILS # (AUTO) 0.1 10^3/uL (0.0-0.2); ABSOLUTE EOSINOPHILS # (AUTO) 0.5 10^3/uL (0.0-0.6); ABSOLUTE LYMPHOCYTES (AUTO) 2.5 10^3/uL (0.5-4.7); ABSOLUTE MONOCYTES (AUTO) 0.8 10^3/uL (0.1-1.4); ABSOLUTE NEUT (AUTO) 2.3 10^3/uL (1.7-8.2); BASOPHILS % (AUTO) 0.9 % (0-2); EOSINOPHILS % (AUTO) 8.7 % (0-6); HEMATOCRIT 37.1 % (37.9-51.0); HEMOGLOBIN 12.6 g/dL (13.5-17.0); LYMPHOCYTES % (AUTO) 40.2 % (13-45); MEAN CORPUSCULAR HEMOGLOBIN 30.6 pg (27.0-33.4); MEAN CORPUSCULAR HGB CONC 34.1 g/dL (32.0-36.0); MEAN CORPUSCULAR VOLUME 90 fl (80-97); MONOCYTES % (AUTO) 13.1 % (3-13); PLATELET COUNT 228 10^3/uL (150-450); RED BLOOD COUNT 4.14 10^6/uL (4.35-5.55); RED CELL DISTRIBUTION WIDTH 14.4 % (11.5-14.0); SEGMENTED NEUTROPHILS % (AUTO) 37.1 % (42-78); TOTAL CELLS COUNTED % (AUTO) 100 %; WHITE BLOOD COUNT 6.1 10^3/uL (4.0-10.5)
[2020-01-21 21:39] LABS: ALBUMIN 3.6 g/dL (3.5-5.0); ALKALINE PHOSPHATASE 48 U/L (38-126); ANION GAP 6 (5-19); ASPARTATE AMINO TRANSFERASE 22 U/L (17-59); BILIRUBIN,DIRECT 0.1 mg/dL (0.0-0.4); BILIRUBIN,TOTAL 0.3 mg/dL (0.2-1.3); BLOOD UREA NITROGEN 13 mg/dL (7-20); CARBON DIOXIDE 28 mmol/L (22-30); CHLORIDE 102 mmol/L (98-107); GLUCOSE 106 mg/dL (75-110); TOTAL PROTEIN 6.4 g/dL (6.3-8.2)
[2020-01-21 22:04] LABS: A TYPE INFLUENZA AG NEGATIVE (NEGATIVE); B INFLUENZA AG NEGATIVE (NEGATIVE)
--- NOTE | 2020-01-21 22:31 | ER Document Report ---
ED General - General Chief Complaint: Productive Cough Stated Complaint: CONGESTION Time Seen by Provider: 01/21/20 19:26 Mode of Arrival: Ambulatory Notes: Patient presents to the ER for evaluation of coarse cough productive of yellowish-greenish sputum times approximately 1 week. He denies shortness of breath but states he has noticed increased wheezing. He denies chest pain. He denies fever. He denies nausea or vomiting. The patient dates he has had some significant sinus discharge and pressure. He denies known exposures to COVID- 19. Nursing notes reviewed and past medical, social, and family histories reviewed and validated. TRAVEL OUTSIDE OF THE [place] IN LAST 30 DAYS: No - Related Data Allergies/Adverse Reactions: No Known Allergies Allergy (Verified 09/08/18 09:40) Home Medications: suboxone, trazadone, vistaril, buspar, Past Medical History - General Information source: Patient - Social History Smoking Status: Current Every Day Smoker Cigarette use (# per day): Yes - 20 Chew tobacco use (# tins/day): No Smoking Education Provided: Yes Frequency of alcohol use: Occasional Drug Abuse: None Lives with: Alone, Family Family History: Reviewed & Not Pertinent Patient has suicidal ideation: No Patient has homicidal ideation: No - Past Medical History Cardiac Medical History: Denies: Hx Coronary Artery Disease, Hx Heart Attack, Hx Hypertension Pulmonary Medical History: Reports: Hx Bronchitis Denies: Hx Asthma, Hx COPD, Hx Pneumonia EENT Medical History: Reports: None Neurological Medical History: Denies: Hx Cerebrovascular Accident, Hx Seizures Endocrine Medical History: Reports: None Renal/ Medical History: Denies: Hx Peritoneal Dialysis Malignancy Medical History: Reports None GI Medical History: Reports: Hx Gastroesophageal Reflux Disease - IBS, Hx Hepatitis - C, Hx Irritable Bowel Musculoskeletal Medical History: Denies Hx Arthritis, Reports Hx Musculoskeletal Trauma - Fractured jaw and today a fourth and fifth metacarpal fracture Skin Medical History: Reports None Psychiatric Medical History: Reports: Hx Anxiety, Hx Bipolar Disorder, Hx Depression Traumatic Medical History: Reports: Hx Fractures - Fractured jaw and today a f ourth and fifth metacarpal fracture Infectious Medical History: Reports: Hx Hepatitis - C Past Surgical History: Reports: Hx Appendectomy, Hx Oral Surgery - Jaw surgery for fracture, Hx Orthopedic Surgery - bilat shoulder - Immunizations Immunizations up to date: Yes Hx Diphtheria, Pertussis, Tetanus Vaccination: Yes Review of Systems - Review of Systems Notes: Constitutional: Negative for fever. HENT: Negative for sore throat. Eyes: Negative for visual changes. Cardiovascular: Negative for chest pain. Respiratory: Positive for cough. Negative for shortness of breath. Gastrointestinal: Negative for abdominal pain, vomiting or diarrhea. Genitourinary: Negative for dysuria. Musculoskeletal: Negative for back pain. Skin: Negative for rash. Neurological: Negative for headaches, weakness or numbness. 10 point ROS negative except as marked above and in HPI. Physical Exam - Vital signs Vitals: Temp Pulse Resp BP Pulse Ox 98.3 F 72 18 115/72 96 01/21/20 19:13 01/21/20 19:13 01/21/20 19:13 01/21/20 19:13 01/21/20 19:13 - Notes Notes: CONSTITUTIONAL: Well appearing. No acute distress. SKIN: Warm, dry, and intact without rash EYES: Extraocular movements are grossly intact, clear conjunctiva HENT: Normocephalic, atraumatic, moist mucus membranes NECK: No obvious swelling, normal range of motion PULMONARY: Normal chest rise and fall. Mild scattered wheezes noted bilate rally. No respiratory distress or stridor. CARDIOVASCULAR: Regular rate. No murmurs, rubs, gallops. Distal extremities are warm and well perfused. NEUROLOGIC: Normal speech, moves all extremities. Cranial nerves are within normal limits. MUSCULOSKELETAL: No gross deformities, atraumatic PSYCHIATRIC: Normal mood and affect Course - Re-evaluation Re-evalutation: 01/21/20 22:31 Rechecked patient who has responded well to treatment in the ER. Discussed with patient: results, diagnosis, treatment plan, and need for follow-up. Return to the emergency department warnings were given. All questions and concerns were addressed. The plan is agreed with and understood. Patient is stable and ready for discharge. - Vital Signs Vital signs: Temp Pulse Resp BP Pulse Ox 98.3 F 72 18 115/72 96 01/21/20 19:13 01/21/20 19:13 01/21/20 19:13 01/21/20 19:13 01/21/20 19:13 - Laboratory Result Diagrams: 01/21/20 21:00 01/21/20 21:00 Laboratory results interpreted by me: 01/21/20 01/21/20 21:00 21:00 RBC 4.14 L Hgb 12.6 L Hct 37.1 L RDW 14.4 H [place] % (Auto) 13.1 H Eos % (Auto) 8.7 H Seg Neutrophils % 37.1 L Sodium 135.5 L - Diagnostic Test Radiology reviewed: Reports reviewed Discharge - Discharge Clinical Impression: Acute upper respiratory infection Condition: Good Disposition: HOME, SELF-CARE Instructions: Bronchitis (OM) Prescriptions: Albuterol Sulfate [Proventil Hfa] 2 puff IH Q6HP PRN #1 inhaler PRN Reason: For Wheezing Prednisone 10 mg PO DAILY 6 Days #1 tab.ds.pk Azithromycin [Zithromax 250 mg Tablet] 250 mg PO ASDIR PRN #6 tablet PRN Reason:
== END 2020-01-21 23:01 | disposition home or self-care (01) ==
LOC: ER 19:08
DX: J06.9 Acute upper respiratory infection, unspecified (principal); F17.210 Nicotine dependence, cigarettes, uncomplicated; Z20.828 Contact with and (suspected) exposure to other viral communicable diseases
CPT/HCPCS: 94640; 99284; 96375; 96365; 96366; 36415; 87040; 87070; 87880; 83735; 85025; 0241U ×4; 80053; 87804; 71045; J2930; J3475; C9803